=== PATIENT | female | born 1980 | race Caucasian/White ===

== ENCOUNTER 2022-09-11 14:43 | Emergency (ER) | payer OTHER, SELFPAY ==
[2022-09-11 14:58] VITALS: BP 120/77; PULSE 69; RESP 16; TEMP 36.5; O2SAT 100
--- NOTE | 2022-09-11 15:13 | ED.SKABFB ---
HPI - Skin/Abscess/Foreign Bdy General Chief complaint: Skin/Abscess/Foreign Body Stated complaint: rash on body Time Seen by Provider: 09/11/22 15:13 Source: patient Mode of arrival: ambulatory Limitations: no limitations History of Present Illness HPI narrative: 42 y/o female presented for c/o itchy rash to right face and neck and left arm for 2 days. Rash appeared after working outside in the yard. Has taken Benadryl. Denies lip, tongue, or throat swelling, shortness of breath or wheezing. Denies changes to soap, detergent, lotion, or any other exposures. No one else in the house or any contacts with similar symptoms. Related Data Home Medications Medication Instructions Recorded Confirmed ferrous sulfate 325 mg (65 mg 325 mg PO DAILY 09/11/22 09/11/22 iron) tablet simvastatin 20 mg tablet 20 mg PO DAILY 09/11/22 09/11/22 sucralfate 1 gram tablet 1 g PO DIRECTED 09/11/22 09/11/22 venlafaxine 75 mg capsule,extended 75 mg PO DAILY 09/11/22 09/11/22 release 24 hr Allergies Allergy/AdvReac Type Severity Reaction Status Date / Time Sulfa (Sulfonamide Allergy Rash Verified 09/11/22 15:12 Antibiotics) Review of Systems Review of Systems: CONSTITUTIONAL: Denies body aches, fever, chills, or sweats. EYES: Denies visual changes, redness, or discharge. ENT: Denies rhinorrhea, congestion CARDIOVASCULAR: Denies chest pain, palpitations, or edema. RESPIRATORY: Denies cough or dyspnea. GASTROINTESTINAL: Denies abdominal pain, nausea, vomiting, or diarrhea. SKIN: Reports rash and itching MUSCULOSKELETAL: Denies back pain, joint pain, or myalgia. NEUROLOGIC: Denies headache, numbness, tingling, or weakness. [facility] Past Medical History Medical History (Updated 09/11/22 @ 15:33 by April Moran APRN) Anxiety Surgical History Surgical History (Updated 09/11/22 @ 15:33 by April Moran APRN) H/O gastric bypass Comments At time of signature, I have reviewed and agree with nursing past medical, surgical, social and family history unless otherwise noted. Please see nursing chart for further information. There is no relevant family history pertinent to the presenting complaint Exam Narrative: GENERAL: Well-appearing HEAD: Normocephalic, atraumatic. EYES: conjunctivae clear, and EOMI. ENT: Mucous membranes moist. Oropharynx without edema, erythema or lesions. NECK: Supple. No lymphadenopathy CHEST: Clear to auscultation. HEART: Regular rate and rhythm. SKIN: Warm, dry. Scattered erythematous vesicular rash to right face and right neck, left forearm consistent with contact dermatitis. No fluctuance, induration, or drainage. Nontender. NEURO: Alert and oriented x3. Course Course Emergency Course: Patient is aware of diagnosis, understands and agrees to treatment plan. Anticipatory guidance given. Patient agrees to follow-up as directed and is aware of reasons to seek care at the emergency department. Portions of this record may have been created with voice recognition software Level of Care: Express Care Visit Vital Signs Vital signs: Vital Signs Temperature 97.7 F 09/11/22 14:58 Pulse Rate 69 09/11/22 14:58 Respiratory Rate 16 09/11/22 14:58 Blood Pressure 120/77 09/11/22 14:58 Pulse Oximetry 100 09/11/22 14:58 Oxygen Delivery Room Air 09/11/22 14:58 Temperature 97.7 F 09/11/22 14:58 Pulse Rate 69 09/11/22 14:58 Respiratory Rate 16 09/11/22 14:58 Blood Pressure 120/77 09/11/22 14:58 Pulse Oximetry 100 09/11/22 14:58 Oxygen Delivery Room Air 09/11/22 14:58 Reviewed MDM - Skin/Abscess/Foreign Bdy MDM Narrative Medical decision making narrative: Discussed physical exam findings. Advised supportive measures and signs/symptoms to go to the ER. Pt is appropriate for outpt treatment and f/u. Instructed patient to go to nearest ER immediately for any worsening symptoms including but not limited to: fever, spreading rash, p
== END 2022-09-11 15:25 | disposition home or self-care (01) ==
PROVIDERS: Emergency Provider Nurse Practitioner Family; PCP Nurse Practitioner Family
DX: L25.9 Unspecified contact dermatitis, unspecified cause (principal); F41.9 Anxiety disorder, unspecified; Z98.84 Bariatric surgery status
CPT/HCPCS: 99203; G0463

== ENCOUNTER 2022-11-20 09:01 | Emergency (ER) | payer OTHER, SELFPAY ==
[2022-11-20 09:09] VITALS: BP 135/85; PULSE 76; RESP 18; TEMP 36.4; O2SAT 98
[2022-11-20] MEDS: TETANUS,DIPHTHERIA,AC PERTUSSIS ADULT (0.5 ML) BOOSTRIX IM (09:25)
--- NOTE | 2022-11-20 09:47 | ED.WOUNDLAC ---
HPI - Wound/Laceration General Chief Complaint: Wound/Laceration Stated Complaint: left hand laceration - cut with a knife Time Seen by Provider: 11/20/22 09:03 History of Present Illness HPI narrative: Patient is a 42-year-old female who presents ER with lacerations to her left hand. Digits #3 and 4. The third digit is 1.5 cm and little bit more open. The fourth digit is very superficial. No numbness or tingling. Unknown last tetanus. No functional deficit. Related Data Home Medications Medication Instructions Recorded Confirmed ferrous sulfate 325 mg (65 mg 325 mg PO DAILY 09/11/22 09/11/22 iron) tablet simvastatin 20 mg tablet 20 mg PO DAILY 09/11/22 09/11/22 sucralfate 1 gram tablet 1 g PO DIRECTED 09/11/22 09/11/22 venlafaxine 75 mg capsule,extended 75 mg PO DAILY 09/11/22 09/11/22 release 24 hr Allergies Allergy/AdvReac Type Severity Reaction Status Date / Time Sulfa (Sulfonamide Allergy Rash Verified 11/20/22 09:11 Antibiotics) Review of Systems Musculoskeletal: Musculoskeletal: Reports no additional musculoskeletal complaints Integumentary/Breasts: Skin/Breast: Denies pruritus, Denies erythema and Denies rash Comments: Finger laceration left third and fourth digit of hand Neurologic: Reports system reviewed and no additional complaints, except as documented PMFSH Past Medical History Medical History (Updated 11/20/22 @ 09:48 by Jerry Mortensen MD) Anxiety Surgical History Surgical History (Updated 09/11/22 @ 15:33 by April Ramirez APRN) H/O gastric bypass Exam Narrative: GENERAL: Well-appearing, well-nourished, and in no acute distress. HEAD: Normocephalic, atraumatic. ENT: Mucous membranes moist. HEART: Regular rate and rhythm. Normal peripheral pulses. EXTREMITIES: Normal range of motion. No edema. Superficial laceration fourth digit of the left hand at the DIP. There is a 1.5 cm laceration in need of repair and at the DIP of the right third digit. Both are on the palmar aspect. No involvement of bone/tendon. SKIN: Warm, dry, no rash. NEURO: Alert and oriented x3. PSYCH: Normal mood and affect. Course Course Emergency Course: Third digit repaired. Second digit not need to repair and bandage placed with topical antibiotic. Vital Signs Vital signs: Vital Signs Temperature 97.6 F 11/20/22 09:09 Pulse Rate 76 11/20/22 09:09 Respiratory Rate 18 11/20/22 09:09 Blood Pressure 135/85 11/20/22 09:09 Pulse Oximetry 98 11/20/22 09:09 Temperature 97.6 F 11/20/22 09:09 Pulse Rate 76 11/20/22 09:09 Respiratory Rate 18 11/20/22 09:09 Blood Pressure 135/85 11/20/22 09:09 Pulse Oximetry 98 11/20/22 09:09 Procedures Laceration Laceration 1: Date: 11/20/22 Time: 09:45 Site: other (Left 3rd digit) Size (cm): 1.5 Description: linear and clean Depth: simple, single layer Local Anesthetic: lidocaine 1% Amount of anesthesia used (mL): 2 Pre-repair: irrigated extensively (soap and water) ====== Skin Level ====== Skin layer closed with: nylon Size (cm): 5-0 Number of sutures: 3 Technique: simple, interrupted ====== Subcutaneous Layer ====== ====== Muscle Layer ====== ====== Tendon Layer ====== Discharge Plan Discharge Clinical Impression: Laceration Patient Disposition: Home, Self-Care Condition: Stable Instructions: Care For Your Stitches (ED), Laceration (ED) Additional Instructions: Leave your sutures in for 2 weeks and then you may remove them. Return to the ER if your finger is red/hot/swollen, the wound is draining pus, you have additional concerns. Your tetanus shot was updated today. Prescriptions: No Action venlafaxine 75 mg capsule,extended release 24hr 75 mg PO DAILY ferrous sulfate 325 mg (65 mg iron) tablet 325 mg PO DAILY sucralfate 1 gram tablet 1 g
== END 2022-11-20 09:57 | disposition home or self-care (01) ==
PROVIDERS: Emergency Provider Emergency Medicine; PCP Nurse Practitioner Family
DX: S61.213A Laceration without foreign body of left middle finger without damage to nail, initial encounter (principal); S61.215A Laceration without foreign body of left ring finger without damage to nail, initial encounter; Z23 Encounter for immunization; F41.9 Anxiety disorder, unspecified; W26.0XXA Contact with knife, initial encounter
CPT/HCPCS: 12001; 90471; 90715; 99282

== ENCOUNTER 2023-12-26 11:48 | Emergency (ER) | payer OTHER, SELFPAY ==
--- NOTE | ~2023-12-26 | XR_ITS ---
EXAMINATION: XR chest 2V DATE: 12/26/2023 12:28 INDICATION: Productive cough. TECHNIQUE: Frontal and lateral views of the chest were obtained. COMPARISON: None. FINDINGS: Calcified left lung nodule and calcified left hilar and mediastinal lymph nodes are consist ent with old granulomatous disease. No pleural effusion or pneumothorax. The heart size is normal. IMPRESSION: 1. No acute cardiopulmonary disease. Reviewed, dictated and finalized at location B.
[2023-12-26 12:00] VITALS: BP 117/80; PULSE 77; RESP 16; TEMP 37.1; O2SAT 100
--- NOTE | 2023-12-26 12:10 | ED_ITS ---
HPI - URI/Sore Throat General Chief Complaint: Upper Respiratory Infection Stated Complaint: fever,head/chest congestion,weak Time Seen by Provider: 12/26/23 12:10 Source: patient Mode of arrival: ambulatory Limitations: no limitations History of Present Illness HPI Narrative: Kevin is a 43-year-old female patient presenting to the clinic today with complaints of feeling feverish, head congestion, mild shortness of breath with exertion, chest congestion, weakness, and overall not feeling well. She reports symptoms started 2 nights ago. MD elicited complaint: sore throat and nasal congestion Related Data Home Medications Medication Instructions Recorded Confirmed ferrous sulfate 325 mg (65 mg 325 mg PO DAILY 09/11/22 09/11/22 iron) tablet simvastatin 20 mg tablet 20 mg PO DAILY 09/11/22 09/11/22 sucralfate 1 gram tablet 1 g PO DIRECTED 09/11/22 09/11/22 venlafaxine 75 mg capsule,extended 75 mg PO DAILY 09/11/22 09/11/22 release 24 hr Allergies Allergy/AdvReac Type Severity Reaction Status Date / Time Sulfa (Sulfonamide Allergy Rash Verified 11/20/22 09:11 Antibiotics) Review of Systems Review of Systems: Pertinent positives per HPI. Patient denies any rash, headache, visual changes, dizziness, chest pain, palpitations, nausea, vomiting, diarrhea, constipation, abdominal pain, or any urinary issues. [facility] Past Medical History Medical History (Updated 12/26/23 @ 12:39 by Eduardo Rudolph APRN) Anxiety Surgical History Surgical History H/O gastric bypass Comments At the time of my signature, I reviewed and agree with the nursing past medical, surgical, social, and family history. There is no relevant family history pertinent to the patient complaint. Exam Narrative: General: Well-developed, obese, in no apparent distress Head: Normocephalic, atraumatic Eyes: Pupils equally round and reactive to light bilaterally, EOM intact, sclera and conjunctive clear, no discharge, lids normal Ears: TMs intact and clear, ear canals clear, no drainage, grossly hearing normal. Nose: Nares patent, there nasal discharge, no inflammation, no sinus tenderness. Mouth: Oral pharynx without lesions or masses, good dentition, MMM. Neck: Supple, trachea midline, no enlargement of anterior or posterior cervical nodes, no thyroid masses or goiter palpable. Cardio: Regular rate and rhythm, s1 and s2 normal, no murmur appreciated. Resp: Clear to auscultation bilaterally, no rhonchi, rales, wheezing or rubs Course Course Emergency Course: Portions of this record may have been created with voice recognition software. Level of Care: Express Care Visit Vital Signs Vital signs: Vital signs reviewed MDM - URI/Sore Throat MDM Narrative Medical decision making narrative: At the time of visit patient is resting comfortably on the exam table. Patient appears to be nontoxic. Labs: COVID and influenza testing was performed and were negative in the clinic today. Diagnostics: Chest x-ray was performed and is negative for any acute cardiopulmonary process. Plan: I suspect patient has URI with cough and congestion. Supportive measures were discussed with the patient and they voiced understanding discharge instructions and agrees to treatment plan. Return precautions reviewed Differential Diagnosis Differential diagnosis: Likely upper respiratory infection, otitis media, sinusitis, viral infection, bronchitis, influenza, pharyngitis and other (COVID) Discharge Plan Discharge Clinical Impression: Upper respiratory infection with cough and congestion Patient Disposition: Home, Self-Care Condition: Stable Instructions: Antibiotic Form, Cold Symptoms (ED) Additional Instructions: COVID and influenza testing was negative. Chest x-rays negative for any acute cardiopulmonary process. May take Mucinex as needed for cough and congestion May take DayQuil/NyQuil for cold/flu symptoms Increase fluids and stay well hydrated Tylenol/motrin for pain/fever Flonase and OTC antihistamines as directed Vicks vapor rub to open sinuses Sinus rinses for congestion Cepacol spray, cough drops, throat lozenges, warm tea with honey/lemon, gargle salt water to soothe throat BRAT diet for diarrhea Clear liquids x 24 hours then advance as tolerated for nausea/vomiting Go to the ED if you develop a worsening in your condition- high fever not controlled by Tylenol or Motrin, dehydration, weakness, lethargy, shortness of breath, or chest pain. Follow up with your PCP in 3-5 days if symptoms persist. Prescriptions: No Action venlafaxine 75 mg capsule,extended release 24hr 75 mg PO DAILY ferrous sulfate 325 mg (65 mg iron) tablet 325 mg PO DAILY sucralfate 1 gram tablet 1 g PO DIRECTED simvastatin 20 mg tablet 20 mg PO DAILY prednisone 50 mg tablet 50 mg PO DAILY Qty: 5 0RF Follow-up/Referrals: Pleitez,Carin Tate APN [Primary Care Provider] - Stand Alone Forms: Work/School Release IP Time of Disposition: 12:39 Quality NIHSS Nursing Documentation ED NIHSS nursing documentation: reviewed/agree
[2023-12-26 12:29] LABS: EDCOVIDSCREEN Negative (Negative); EDINFLUASCREEN Negative (Negative); EDINFLUBSCREEN Negative (Negative)
== END 2023-12-26 12:47 | disposition home or self-care (01) ==
PROVIDERS: Emergency Provider Nurse Practitioner Family; PCP Nurse Practitioner Family
DX: J06.9 Acute upper respiratory infection, unspecified (principal); R05.9 Cough, unspecified; Z20.822 Contact with and (suspected) exposure to COVID-19; F41.9 Anxiety disorder, unspecified; Z98.84 Bariatric surgery status
CPT/HCPCS: 71046; 87426; 87804; 99213; G0463

== ENCOUNTER 2024-01-17 21:32 | Emergency (ER) | payer OTHER, SELFPAY ==
--- NOTE | ~2024-01-17 | XR_ITS ---
EXAMINATION: XR shoulder RT min 2V DATE: 01/17/2024 22:08 INDICATION: Right shoulder injury TECHNIQUE: AP internally and externally rotated and transscapular Y views of the right shoulder were obtained. COMPARISON: None FINDINGS: Normal alignment. No fracture. Glenohumeral joint is normal. Acromioclavicular joint is normal. Mid thoracic dextroscoliosis. Soft tissues are unremarkable. Visualized portion of the right lung are darby ar. IMPRESSION: No acute osseous abnormality. Reviewed, dictated and finalized at location A.
[2024-01-17 21:33] VITALS: BP 127/68; PULSE 82; RESP 20; TEMP 36.6; O2SAT 100
--- NOTE | 2024-01-17 21:56 | ED_ITS ---
HPI - Extremity Injury (Upper) General Chief Complaint: Extremity Injury, Upper Stated Complaint: shoulder injury Time Seen by Provider: 01/17/24 21:50 History of Present Illness HPI narrative: 43-year-old female presenting to the emergency department with a chief complaint of right upper extremity shoulder pain she sustained wall block and dog that pulled her forward and she landed onto her outstretched right arm. She states the pain was immediate and localized to the top right shoulder. No elbow pain or wrist pain. She is able to extend her elbow and has full mobility at the wrist and good salesforce trainer strength. No neuropathy or weakness, tingling in the fingertips. Drove herself to the hospital. Did not hit her head or lose consciousness. She was otherwise in her normal state of health. Related Data Home Medications Medication Instructions Recorded Confirmed ferrous sulfate 325 mg (65 mg 325 mg PO DAILY 09/11/22 12/26/23 iron) tablet venlafaxine 75 mg capsule,extended 75 mg PO DAILY 09/11/22 12/26/23 release 24 hr Allergies Allergy/AdvReac Type Severity Reaction Status Date / Time Sulfa (Sulfonamide Allergy Rash Verified 01/17/24 21:41 Antibiotics) Review of Systems Review of Systems: As reviewed above in HPI [facility] Past Medical History Medical History Anxiety Surgical History Surgical History H/O gastric bypass Exam Narrative: GENERAL: [Well-appearing, well-nourished, and in no acute distress.] HEAD: [Normocephalic, atraumatic.] EYES: [PERRLA and EOMI.] ENT: Nares clear, no rhinorrhea or epistaxis. Mucous membranes moist. NECK: Supple. CHEST: [Clear to auscultation. No respiratory distress.] HEART: [Regular rate and rhythm]. No murmur heard. [Normal peripheral pulses.] ABDOMEN: [Soft, nondistended], [nontender], [No rigidity or guarding] EXTREMITIES: tenderness to palpation of the proximal right humerus, no obvious deformity but there is some potential separation at the AC joint with some asymmetry compared to the left side. No tenderness along the clavicle or sternum. No tenderness over the mid she after distal humerus or elbow. Full range of motion of the elbow, wrist and good salesforce trainer strength bilaterally. Able to shrug her shoulders with good strength. SKIN: Warm, dry, no rash. NEURO: [No focal deficits]. Alert and oriented [x3.] PSYCH: [Normal mood and affect.] Course Vital Signs Vital signs: Vital Signs Temperature 36.6 C 01/17/24 21:33 Pulse Rate 82 01/17/24 21:33 Respiratory Rate 20 01/17/24 21:33 Blood Pressure 127/68 01/17/24 21:33 Pulse Oximetry 100 01/17/24 21:33 Oxygen Delivery Room Air 01/17/24 21:33 Temperature 36.6 C 01/17/24 21:33 Pulse Rate 82 01/17/24 21:33 Respiratory Rate 20 01/17/24 21:33 Blood Pressure 127/68 01/17/24 21:33 Pulse Oximetry 100 01/17/24 21:33 Oxygen Delivery Room Air 01/17/24 21:33 MDM - Extremity Injury (Upper) MDM Narrative Medical decision making narrative: 43-year-old female presenting after mechanical fall being pulled by her dog. She fell onto her right shoulder and sedated injury. She is able to shrug the shoulders and flex the elbow and has good salesforce trainer strength. Distal neuro vasculature is intact. Symmetric pulse a shins and warm extremities. Vital signs are reassuring, no tachypnea, tachycardia, hypoxia or fever. No blood pressure concerns. Fall with purely mechanical in nature. she does have significant tenderness in the proximal humeral area near the shoulder joint. Considerations present of her shoulder dislocation, proximal humerus fracture, combination of the 2. AC separation or other underlying bony process not excluded. Will obtain views of the shoulder with x-rays and give her symptomatic treatment with intramuscular Dilaudid, oral Tylenol oral Robaxin for symptom control. X-rays independent reviewed by myself and also by Radiology. No obvious apparent fractures or dislocations. Architecture the bony structures and shoulder appeared normal including clavicle and AC joint. [employer] read shows no fractures dislocations. Patient was re-evaluated at had improvement after the medications here in the emergency department. we will provide the patient a sling for comfort and I encouraged her to alternate ice in the short term for the next 48 hours followed by heat in addition to medication therapies including Tylenol ibuprofen any kind topical therapy such as lidocaine. Encouraged her to take the arm out of the sling for mobility and return to her normal functionality as tolerated. She has an outpatient primary care provider that she can follow-up with. Patient was stable for discharge home at this time provided worknote as well as prescription medications. Medical Records Attestation: I reviewed the patient's medical records. Lab Data Attestation: I reviewed the patient's lab results. Imaging Data Attestation: I personally reviewed and interpreted this imaging study as follows: My impression: No acute fracture or dislocation Radiologist's impression: No acute fracture or dislocation Discharge Plan Discharge Clinical Impression: Injury of shoulder, right Patient Disposition: Home, Self-Care Condition: Stable Instructions: Antibiotic Form, How to Use a Sling (ED), Shoulder Sprain (ED) Additional Instructions: Your x-ray was reassuring that he did not fracture or break/ dislocate her shoulder or clavicle. You likely have a shoulder sprain and injury to the musculature in this area. We have provided a sling for comfort. Place ice packs in the shoulder for about 20 minutes at time up to 4 times daily for the next 2 days and alternate with heat thereafter. Tylenol ibuprofen and low dose muscle relaxer was sent to your pharmacy for symptom control. We have provided a work note. Prescriptions: New methocarbamol 500 mg tablet 500 mg PO HS Qty: 7 0RF ibuprofen 800 mg tablet 800 mg PO TID PRN (Reason: pain) Qty: 30 0RF acetaminophen [Tylenol Extra Strength] 500 mg tablet 1,000 mg PO TID PRN (Reason: pain) Qty: 30 0RF No Action venlafaxine 75 mg capsule,extended release 24hr 75 mg PO DAILY ferrous sulfate 325 mg (65 mg iron) tablet 325 mg PO DAILY Follow-up/Referrals: Pricilla,Carin Tate APN [Primary Care Provider] - Stand Alone Forms: Work/School Release IP Time of Disposition: 00:22
[2024-01-17] MEDS: methocarbamoL 750 MG TABLET PO (22:09)
[2024-01-17] MEDS: ACETAMINOPHEN 500 MG TABLET 1000 MG PO (22:09)
[2024-01-17] MEDS: HYDROmorphone HCL INJ (*CRX) 1 MG/ML SYR IM (22:09)
[2024-01-18 00:36] VITALS: BP 123/68; PULSE 80; RESP 17; TEMP 36.4; O2SAT 100
== END 2024-01-18 00:37 | disposition home or self-care (01) ==
PROVIDERS: Emergency Provider Student in an Organized Health Care Education/Training Program; PCP Nurse Practitioner Family
DX: S49.91XA Unspecified injury of right shoulder and upper arm, initial encounter (principal); F41.9 Anxiety disorder, unspecified; W18.39XA Other fall on same level, initial encounter; Y93.K1 Activity, walking an animal; Z79.899 Other long term (current) drug therapy
CPT/HCPCS: 73030; 99283; A4565; A9270; J1171